=== PATIENT | male | born 1975 | race Caucasian/White ===

== ENCOUNTER 2021-02-16 15:31 | Emergency (ER) | payer OTHER, SELFPAY ==
--- NOTE | ~2021-02-16 | XR_ITS ---
EXAMINATION: XR LUMBOSACRAL SPINE CLINICAL INFORMATION: Back pain COMPARISON: Lumbar spine March 19, 2020, CT abdomen pelvis March 30, 2019. TECHNIQUE: 3 views FINDINGS: Lumbar vertebrae have normal alignment. No subluxation. No spondylolysis or spondylolisthesis. There is subtle anterior wedge compression deformity which is chronic. T12 and L1 unchanged since prior study March 19, 2021 CT scan abdomen pelvis March 30, 2019. There is mild degenerative change. There are are endplate spurs of the vertebrae at thoracic and lumbar vertebrae. Lumbar disc heights are normal. Mild degenerative change of facet joints at lower lumbar spine. XR/XR lumbar spine 2-3V IMPRESSION: 1. No acute abnormality. 2. Mild degenerative spondylosis. 3. Chronic subtle anterior wedge compression deformities of T12 and L1. No acute vertebral fracture.
[2021-02-16 16:52] VITALS: BP 154/100; PULSE 78; RESP 18; TEMP 36.8; O2SAT 99; BMI 37.5
--- NOTE | 2021-02-16 18:28 | ED_ITS ---
HPI - Back Pain/Injury General Chief Complaint: Back Pain/Injury Stated Complaint: back pain Time Seen by Provider: 02/16/21 17:56 Source: patient and family Mode of arrival: wheelchair Limitations: language barrier History of Present Illness HPI Narrative: 45-year-old male with past medical history of chronic back pain and diabetes presents with 10/10 lower back pain with bilateral sciatica. His back has been hurting since Tuesday, and he has not had any relief with his gabapentin. He has not tried any Tylenol or Motrin, does not report any trauma, falls, symptoms indicating cauda equina, fevers, chills, chest pain or pressure, palpitations, abdominal pain, abdominal distention, nausea, vomiting, diarrhea, constipation, dysuria, hematuria, or edema. MD elicited complaint: back pain Pertinent past history: prior back pain Onset (ago): day(s) (3) Timing: constant Severity: severe Pain scale (0-10): 10 Similar Symptoms Previously: Yes Quality: sharp, aching, tingling, spasming and throbbing Location: lumbar spine and sacrum Radiation: buttocks, left upper leg and right upper leg Exacerbating factors: movement and walking Relieving factors: none Associated symptoms: denies other symptoms Work related injury: No Related Data Previous Rx's Medication Instructions Recorded metformin 1,000 mg tablet 1,000 mg PO BID 90 Days #180 tab 10/03/20 glipizide 5 mg tablet, extended 5 mg PO DAILY 30 Days #30 tab 10/30/20 release 24 hr cyclobenzaprine 10 mg tablet 10 mg PO TID PRN #14 tab 02/16/21 diazepam 5 mg tablet (Valium) 5 mg PO BEDTIME PRN #7 tab 02/16/21 naproxen 500 mg tablet 500 mg PO BID PRN #60 tab 02/16/21 Allergies Allergy/AdvReac Type Severity Reaction Status Date / Time No Known Allergies Allergy Verified 02/16/21 17:40 Review of Systems Review of Systems: Constitutional: No Fever, No Chills ENT/Mouth: No Ear Pain, No Hoarseness, No sore throat Eyes: No Eye Pain, No Swelling, No Redness, No Foreign Body Cardiovascular: No Chest Pain, No SOB Respiratory: No Cough, No Dyspnea Gastrointestinal: No Nausea, No Vomiting, No Diarrhea, No abdominal Pain Genitourinary: No Dysuria, No Hematuria Musculoskeletal: positive lower back pain, No Myalgias, No Joint Swelling Skin: No Skin lacerations, No rash Neuro: No Weakness, No Numbness, No Paresthesias, No Loss of Consciousness, No Dizziness, No Headache Psych: No Anxiety/Panic, No Depression Heme/Lymph: no easy bruising, no Lymphadenopathy Endocrine: No Polyuria, No Polydipsia Yes all other systems are reviewed and are negative [facility] Past Medical History Attestation statement: The following information was validated with the patient. Source: old records reviewed Medical History (Updated 02/16/21 @ 18:55 by Ira Davidson NP) Diabetes type 2, uncontrolled Family History Family History Father Diabetes Mother Diabetes Social History Social History Advance Directives: No Advance Directives Information Provided: No Physical Exam Vital Signs: Vital Signs: Last Vital Signs Temp 98.2 F 02/16/21 16:52 Pulse 78 02/16/21 16:52 Resp 18 02/16/21 16:52 BP 154/100 H 02/16/21 16:52 Pulse Ox 99 02/16/21 16:52 Body Mass Index 37.5 Appearance: Alert. Oriented X3. Moderate distress. Head: Normal external exam. Normocephalic. Atraumatic. Eyes: PERRLA. EOMI. Conjunctiva and sclera normal. Eyelids normal. ENT: TM's Normal. Pharynx normal. Uvula midline. Moist mucous membranes. Neck: Normal inspection. Neck supple. CVS: Normal heart rate and rhythm. Heart sound normal. No murmurs noted. Pulses equal to all extremities. Respiratory: No respiratory distress. Painless inspiration. Lung sounds clear to auscultation all lobes. Chest nontender. No accessory muscle usage noted or decreased air movement noted. Abdomen: Soft and nontender. Morbidly obese. Bowel sounds normal in all 4 quadrants. No distention noted. No organomegaly noted. No visible injury noted. Back: No CVA tenderness. Full range of motion noted. No vertebral tenderness or step-offs. Skin: Skin warm and dry. Normal skin color. Normal skin turgor. No rashes/lesions/lacerations noted. Extremities: No lower extremity edema. Extremities exhibit normal range of motion. Extremities nontender. Neuro: cranial nerves 2-12 intact, no focal neural deficits, strength 5/5 to all extremities, No motor deficit. No sensory deficit. Course Course Course Narrative: 45-year-old male presents with 3 days of back pain. Has not taken any [id number] medications but has taken his gabapentin with poor effect. He does have a history of chronic pain and diabetes. He is ambulatory, gait well balanced well coordinated but awkward because of his pain. Neurovascularly intact, sensation to all extremities within normal limits, bilaterally equal pedal pulses and equal brisk capillary refill. Plan of care is for x-ray. X-rays do not indicate any acute findings requiring emergent intervention. Will refer to pain management. I will provide Toradol, Valium, Lidoderm patches. Patient verbalized understanding of and agrees plan of care discharge home. MDM - Back Pain/Injury Differential Diagnosis Differential diagnosis: Likely lumbar radiculopathy and sciatica Medical Records Attestation: I reviewed the patient's medical records. Imaging Data Lumbar spine: Attestation: I personally reviewed and interpreted this imaging study as follows: Radiologist's impression: EXAMINATION: XR FOOT, LEFT CLINICAL INFORMATION: Left foot pain.? COMPARISON: None? TECHNIQUE: 3 views of the left foot. FINDINGS: There is no fracture. No dislocation. No focal bone lesion or abnormal periosteal reaction. The joint spaces are normal. There is no soft tissue abnormality. There is a prominent contour of the posterior superior calcaneus, Diana's deformity. No thickening of the Achilles tendon however is evident. There are small calcifications at the Achilles tendon insertion of the posterior calcaneus. XR/XR foot LT 2V IMPRESSION: ? 1. No acute abnormality. 2. Diana's deformity of the calcaneus. Discharge Plan Discharge Clinical Impression: Spondylosis, Wedge deformity on x-ray of spine Patient Disposition: Home, Self-Care Instructions: Sciatica (ED), Degenerative Disc Disease (ED) Additional Instructions: Fue evaluado por dolor de espalda. Estrella radiograf?as muestran osmin enfermedad degenerativa del disco y deformidades en cu?a anterior. Estos son problemas cr?nicos. Adri un seguimiento con el manejo del dolor, Dr. Rosales. Sabine por elegir selene departamento de emergencias para boyle evaluaci?n. Adri un seguimiento con boyle m?dico de atenci?n primaria seg?n sea necesario. Regrese al departamento de emergencias por cualquier s?ntoma nuevo, preocupante o que empeore. You were evaluated for back pain. Her x-rays show degenerative disc disease and anterior wedge deformities. These are chronic problems. Please follow-up with pain management, Dr Rosales. Thank you for choosing this emergency department for evaluation. Please follow-up with primary care physician as needed. Return to the emergency department for any new, concerning, or worsening symptoms. Prescriptions: New naproxen 500 mg tablet 500 mg PO BID PRN (Reason: pain) Qty: 60 RF: 0 cyclobenzaprine 10 mg tablet 10 mg PO TID PRN (Reason: muscle spasm) Qty: 14 RF: 0 diazepam [Valium] 5 mg tablet 5 mg PO BEDTIME PRN (Reason: muscle spasm) Qty: 7 RF: 0 No Action metformin 1,000 mg tablet 1,000 mg PO BID 90 Days Qty: 180 RF: 0 glipizide 5 mg tablet extended release 24hr 5 mg PO DAILY 30 Days Qty: 30 RF: 3 Stand Alone Forms: Work/School Release Interventions: ED Discharge Assessment Last Done: 02/16/21 19:11 Discharge Date/Time: 02/16/21 19:12
[2021-02-16] MEDS: Ketorolac Tromethamine 60 MG/2 ML VIAL IM (18:29)
[2021-02-16] MEDS: diazePAM 5 MG TABLET PO (18:30)
[2021-02-16] MEDS: Lidocaine 4 % Patch ADH..PATCH 2 PATCH TRANSDERMA (18:30)
== END 2021-02-16 19:12 | disposition home or self-care (01) ==
PROVIDERS: Emergency Provider Internal Medicine; PCP Nurse Practitioner Family
DX: M43.06 Spondylolysis, lumbar region (principal); M54.5 Low back pain; E11.9 Type 2 diabetes mellitus without complications
CPT/HCPCS: 72100; 96372; 99284; J1885

== ENCOUNTER 2021-03-18 17:54 | Emergency (ER) | payer OTHER, SELFPAY ==
[2021-03-18 18:03] VITALS: BP 159/110; PULSE 84; RESP 16; TEMP 36.2; O2SAT 96; BMI 39.9
--- NOTE | 2021-03-18 19:06 | ED_ITS ---
HPI - Skin/Abscess/Foreign Bdy General Chief complaint: Skin/Abscess/Foreign Body Stated complaint: allergies Time Seen by Provider: 03/18/21 18:47 Source: patient Mode of arrival: ambulatory Limitations: no limitations History of Present Illness HPI narrative: 45-year-old male with a history of hxd-cyizmof-pibbtxamy diabetes well controlled here with complaints of itching rash for 5 days. Patient tells me that he was doing yd work clearing hari and the next morning when he woke up he started to notice a itching rash over his arms, legs and torso. He sized primary care doctor yesterday and started on a prednisone taper. Also given Benadryl for itching and cetirizine for 1 tab daily. Patient tells me continued rash. No vomiting, diarrhea, facial swelling or rash. He is here because he feels like it is not better after taking 1 dose of prednisone yesterday. Related Data Previous Rx's Medication Instructions Recorded metformin 1,000 mg tablet 1,000 mg PO BID 90 Days #180 tab 10/03/20 glipizide 5 mg tablet, extended 5 mg PO DAILY 30 Days #30 tab 10/30/20 release 24 hr cyclobenzaprine 10 mg tablet 10 mg PO TID PRN #14 tab 02/16/21 diazepam 5 mg tablet (Valium) 5 mg PO BEDTIME PRN #7 tab 02/16/21 naproxen 500 mg tablet 500 mg PO BID PRN #60 tab 02/16/21 hydrocortisone 2.5 % topical cream 1 appl TOPICAL TID PRN #453.6 g 03/18/21 hydroxyzine pamoate 25 mg capsule 25 mg PO TID PRN #20 cap 03/18/21 (Vistaril) Allergies Allergy/AdvReac Type Severity Reaction Status Date / Time No Known Allergies Allergy Verified 02/16/21 17:40 Review of Systems Review of Systems: Yes all other systems are reviewed and are negative Constitutional: Constitutional: Reports no additional constitutional complaints, Denies body ache(s), Denies chills, Denies fever(s), Denies headache(s) and Denies weakness Eyes: Eyes: Reports no additional eye complaints and Denies change in vision ENT: Reports system reviewed and no additional complaints, except as documented, Denies dizziness, Denies headache(s), Denies nasal congestion, Denies nasal discharge and Denies neck pain Cardiovascular: Cardiovascular: Reports no additional cardiovascular complaints, Denies chest pain, Denies leg edema and Denies dyspnea Respiratory: Respiratory: Reports no additional respiratory complaints, Denies cough and Denies dyspnea Gastrointestinal: Gastrointestinal: Reports no additional gastrointestinal complaints, Denies abdominal pain, Denies diarrhea, Denies nausea and Denies vomiting Genitourinary: Genitourinary: Denies urinary incontinence Musculoskeletal: Musculoskeletal: Reports no additional musculoskeletal compl aints, Denies back pain, Denies arthralgias, Denies joint swelling, Denies neck pain, Denies numbness and Denies tingling Integumentary/Breasts: Skin/Breast: Reports system reviewed and no additional complaints, except as docu and Reports rash Neurologic: Reports system reviewed and no additional complaints, except as documented, Denies Abnormal speech present, Denies dizziness, Denies headache(s), Denies numbness, Denies tingling and Denies weakness PMFSH Past Medical History Attestation statement: The following information was validated with the patient. Source: old records reviewed and nursing notes reviewed Medical History Diabetes type 2, uncontrolled Family History Family History Father Diabetes Mother Diabetes Social History Social History Advance Directives: No Advance Directives Information Provided: No Physical Exam Vital Signs: Vital Signs: Last Vital Signs Temp 97.2 F 03/18/21 18:03 Pulse 84 03/18/21 18:03 Resp 16 03/18/21 18:03 BP 159/110 H 03/18/21 18:03 Pulse Ox 96 03/18/21 18:03 Body Mass Index 39.9 Const: General: cooperative, healthy appearing, comfortable and no acute distress Orientation/consciousness: patient oriented x3 Limitations: no limitations HENMT: Head: Yes normal to inspection Ears: hearing grossly normal bilaterally General nose exam: Normal external nose present Face and sinus: Yes normal facial exam Mouth: Normal oral and palatal mucosa present Throat: Yes posterior oropharynx normal Eyes: General: appearance normal, both eyes and all related structures Pupils: Equal, round and reactive pupils present Neck: Neck: Yes normal visual inspection Chest: Chest palpation & inspection: normal inspection of the chest Resp: Effort & Inspection: normal respiratory effort Auscultation: clear to auscultation bilaterally Cardio: Rate: regular rate Rhythm: regular rhythm Peripheral pulses: P eripheral pulses 2+ throughout GI: Inspection: Yes normal to inspection Palpation (GI): Soft to palpation and nontender Auscultation: normal bowel sounds Back/Spine/Pelvis: Thoracic/Lumbar Spine: thoracic and lumbar spine normal to inspection Skin: Other: Urticarial rash noted over the forearms, lower legs and torso with vesicles. General skin exam: no rashes or lesions noted Neuro: General: patient oriented x3, no focal motor deficits and normal sensation to monofilament Cranial nerves: Yes Equal, round and reactive pupils present Cognition (Neuro): normal cognition Speech: No Abnormal speech present Gait exam (Neuro): Normal gait present Motor exam (neuro): 5/5 motor strength present throughout Extrem: General: Yes normal to inspection Course Course Course Narrative: Rash that is consistent with poison kayley. Patient is here for continued rash just by taking 1 dose of prednisone at home. Recommended old male bowels, calamine lotion. Will prescribe topical steroid as well as Atarax to help with the itching which is the patient's primary concern. Reviewed worrisome signs and symptoms of when to return to the emergency department. Comfortable discharge home. Asymptomatic hypertension. Patient will follow-up with his primary care doctor MDM - Skin/Abscess/Foreign Bdy Medical Records Attestation: I reviewed the patient's medical records. Lab Data Attestation: I reviewed the patient's lab results. Discharge Plan Discharge Clinical Impression: Poison kay[place] Patient Disposition: Home, Self-Care Instructions: Poison [place] (ED) Additional Instructions: Continue medications from PCP Your blood pressure was elevated today. Please follow-up with primary care doctor in regards to this Prescriptions: New hydrocortisone 2.5 % cream 1 appl topical TID PRN (Reason: rash) Qty: 453.6 RF: 0 hydroxyzine pamoate [Vistaril] 25 mg capsule 25 mg PO TID PRN (Reason: itching) Qty: 20 RF: 0 No Action metformin 1,000 mg tablet 1,000 mg PO BID 90 Days Qty: 180 RF: 0 glipizide 5 mg tablet extended release 24hr 5 mg PO DAILY 30 Days Qty: 30 RF: 3 naproxen 500 mg tablet 500 mg PO BID PRN (Reason: pain) Qty: 60 RF: 0 cyclobenzaprine 10 mg tablet 10 mg PO TID PRN (Reason: muscle spasm) Qty: 14 RF: 0 diazepam [Valium] 5 mg tablet 5 mg PO BEDTIME PRN (Reason: muscle spasm) Qty: 7 RF: 0 Referrals: Cindy Wiseman, [facility] [facility] [Primary Care Provider] - 2 days
[2021-03-18 19:16] VITALS: BP 164/105
== END 2021-03-18 19:18 | disposition home or self-care (01) ==
LOC: HO.ED 19:04
PROVIDERS: Emergency Provider Emergency Medicine Emergency Medical Services; PCP Nurse Practitioner Family
DX: L23.7 Allergic contact dermatitis due to plants, except food (principal); R21 Rash and other nonspecific skin eruption; E11.9 Type 2 diabetes mellitus without complications
CPT/HCPCS: 99283; 99284